=== PATIENT | male | born 1950 | race Caucasian/White ===

== ENCOUNTER 2016-08-25 21:25 | Emergency (ER) | payer MEDICARE ==
[2015-02-19 09:49] VITALS: BMI 26.6
[~2016-08-25 21:25] MED LIST: SOMA250 MG
== END 2016-08-25 23:18 | disposition home or self-care (01) ==
LOC: D.ER 21:25
DX: S30.0XXA Contusion of lower back and pelvis, initial encounter (principal); X58.XXXA Exposure to other specified factors, initial encounter; Y93.89 Activity, other specified; Y92.89 Other specified places as the place of occurrence of the external cause

== ENCOUNTER 2016-11-17 16:13 | Emergency (ER) | payer MEDICARE ==
[2015-02-19 09:49] VITALS: BMI 26.6
[2016-11-17 17:06] LABS: APPEARANCE CLEAR (CLEAR); BILIRUBIN NEGATIVE (NEGATIVE); COLOR YELLOW (YELLOW); GLUCOSE NEGATIVE (NEGATIVE); KETONE NEGATIVE (NEGATIVE); LEUKOCYTE ESTERASE NEGATIVE (NEGATIVE); NITRITE NEGATIVE (NEGATIVE); PROTEIN NEGATIVE (NEGATIVE); UROBILINOGEN NORMAL (NORMAL)
[2016-11-17 18:41] LABS: BASOPHILS 0 % (0.0-2.0); EOSINOPHILS 0.2 % (0-7); HEMATOCRIT 40.4 % (42.0-54.0); HEMOGLOBIN 13.5 g/dL (13.5-17.5); LYMPHOCYTES 13.9 % (15-50); MCH 31.5 pg (26.0-34.0); MCHC 33.4 g/dL (31.0-37.0); MCV 94.2 fL (80.0-100.0); MEAN PLATELET VOLUME 11.8 fL (7.4-10.4); MONOCYTES 6.8 % (2-11); NEUTROPHILS 79.1 % (40-80); PLATELET COUNT 69 10x3/uL (130-400); RBC 4.29 10x6/uL (4.20-6.10); RDW 13.9 % (11.5-14.5); WBC 4.4 10x3/uL (4.8-10.8)
[2016-11-17 19:06] LABS: PLATELET ESTIMATE DECREASED
== END 2016-11-17 19:55 | disposition home or self-care (01) ==
LOC: D.ER 16:13
PROVIDERS: Emergency Medicine; Physician Assistant Medical
DX: E86.0 Dehydration (principal); R19.7 Diarrhea, unspecified

== ENCOUNTER 2017-09-08 03:53 | Emergency (ER) | payer MEDICARE ==
[2015-02-19 09:49] VITALS: BMI 26.6
[2017-09-08 04:59] LABS: BASOPHILS 0.1 % (0-2); EOSINOPHILS 0.6 % (0-7); HEMATOCRIT 42.9 % (42.0-54.0); HEMOGLOBIN 14.5 g/dL (13.5-17.5); IMMATURE GRANULOCYTES 0.3 % (0-5); LYMPHOCYTES 19.1 % (15-50); MCH 31.6 pg (26.0-34.0); MCHC 33.8 g/dL (31.0-37.0); MCV 93.5 fL (80.0-100.0); MEAN PLATELET VOLUME 11.7 fL (7.4-10.4); MONOCYTES 10.1 % (2-11); NEUTROPHILS 69.8 % (40-80); RBC 4.59 10x6/uL (4.20-6.10); RDW 13.7 % (11.5-14.5); WBC 6.9 10x3/uL (4.8-10.8)
[2017-09-08 05:03] LABS: PLATELET COUNT 101 10x3/uL (130-400)
[2017-09-08 05:28] LABS: ANION GAP 13.4 mmol/L (8-16); BILIRUBIN - TOTAL 0.9 mg/dL (0.2-1.3); CARBON DIOXIDE 25.1 mmol/L (21.0-32.0); CREATININE - SERUM 1.1 mg/dL (0.6-1.3); POTASSIUM - SERUM 3.5 mmol/L (3.5-5.1); PROTEIN - SERUM 6.1 g/dL (6.4-8.2)
[2017-09-08 05:49] LABS: APPEARANCE HAZY (CLEAR); BILIRUBIN NEGATIVE (NEGATIVE); COLOR DK YELLOW (YELLOW); GLUCOSE NEGATIVE (NEGATIVE); KETONE NEGATIVE (NEGATIVE); NITRITE NEGATIVE (NEGATIVE); PROTEIN NEGATIVE (NEGATIVE); SPECIFIC GRAVITY 1.025 (1.005-1.020); UROBILINOGEN NORMAL (NORMAL)
[2017-09-08 05:50] LABS: BACTERIA FEW /hpf (NONE SEEN); EPITHELIAL CELLS 0-5 /hpf (0-5); MUCUS >1+ /lpf (NONE SEEN); RED CELLS - URINE 0-5 /hpf (0-5); WHITE CELLS - URINE 0-5 /hpf (0-5)
== END 2017-09-08 08:50 | disposition home or self-care (01) ==
LOC: D.ER 03:53
PROVIDERS: Emergency Medicine
DX: R00.0 Tachycardia, unspecified (principal)

== ENCOUNTER 2017-09-10 12:17 | Inpatient (IN) | payer MEDICARE ==
[~2017-09-10] VITALS: Ht 170.2 cm; Wt 77.1 kg
[2017-09-10 13:01] LABS: BASOPHILS 0.1 % (0-2); EOSINOPHILS 0.1 % (0-7); HEMATOCRIT 46.4 % (42.0-54.0); HEMOGLOBIN 16.2 g/dL (13.5-17.5); IMMATURE GRANULOCYTES 0.3 % (0-5); LYMPHOCYTES 16.1 % (15-50); MCHC 34.9 g/dL (31.0-37.0); MCV 91.5 fL (80.0-100.0); MEAN PLATELET VOLUME 11.2 fL (7.4-10.4); MONOCYTES 8.8 % (2-11); NEUTROPHILS 74.6 % (40-80); PLATELET COUNT 142 10x3/uL (130-400); RBC 5.07 10x6/uL (4.20-6.10); RDW 13.8 % (11.5-14.5); WBC 13.1 10x3/uL (4.8-10.8)
[2017-09-10 13:17] LABS: ANION GAP 17.2 mmol/L (8-16); BILIRUBIN - TOTAL 0.84 mg/dL (0.2-1.3); CARBON DIOXIDE 21.4 mmol/L (21.0-32.0); CREATININE - SERUM 1.1 mg/dL (0.6-1.3); POTASSIUM - SERUM 3.6 mmol/L (3.5-5.1)
[2017-09-10 15:43] LABS: APPEARANCE CLEAR (CLEAR); BILIRUBIN NEGATIVE (NEGATIVE); COLOR AMBER (YELLOW); GLUCOSE NEGATIVE (NEGATIVE); KETONE LARGE mg/dL (NEGATIVE); NITRITE NEGATIVE (NEGATIVE); PROTEIN TRACE mg/dL (NEGATIVE); SPECIFIC GRAVITY 1.025 (1.005-1.020); UROBILINOGEN NORMAL (NORMAL)
[2017-09-10 15:44] LABS: EPITHELIAL CELLS OCC /hpf (0-5); MUCUS <1+ /lpf (NONE SEEN); RED CELLS - URINE 0-5 /hpf (0-5); WHITE CELLS - URINE 0-5 /hpf (0-5)
[2017-09-10 20:00] VITALS: BP 103/64
[2017-09-10] MEDS ORDERED: ZOVIRAX800 MG (20:08)
[2017-09-10] MEDS ORDERED: SOMA250 MG (20:18)
[2017-09-10] MEDS ORDERED: ROBAXIN500 MG PO (20:27)
[2017-09-10] MEDS ORDERED: NEURONTIN 300300 MG PO (20:28)
[2017-09-11] VITALS: BP 99/62
[2017-09-11 04:00] VITALS: BP 96/63
[2017-09-11 05:43] LABS: BASOPHILS 0.1 % (0-2); EOSINOPHILS 0.2 % (0-7); HEMATOCRIT 41.3 % (42.0-54.0); HEMOGLOBIN 14.2 g/dL (13.5-17.5); IMMATURE GRANULOCYTES 0.2 % (0-5); LYMPHOCYTES 17.2 % (15-50); MCH 31.8 pg (26.0-34.0); MCHC 34.4 g/dL (31.0-37.0); MCV 92.4 fL (80.0-100.0); MONOCYTES 10.3 % (2-11); RBC 4.47 10x6/uL (4.20-6.10); RDW 13.9 % (11.5-14.5)
[2017-09-11 05:49] LABS: PLATELET COUNT 111 10x3/uL (130-400); WBC 9.8 10x3/uL (4.8-10.8)
[2017-09-11 06:06] LABS: ALKALINE PHOSPHATASE 36 U/L (46-116); ALT (SGPT) 17 U/L (10-68); CALC OSMOLALITY 278 mosm/kg (275-300); CALCIUM 7.4 mg/dL (8.5-10.1); CARBON DIOXIDE 23.1 mmol/L (21.0-32.0); CHLORIDE - SERUM 107 mmol/L (98-107); CREATININE - SERUM 0.9 mg/dL (0.6-1.3); GLUCOSE 112 mg/dL (74-106); POTASSIUM - SERUM 3.7 mmol/L (3.5-5.1); PROTEIN - SERUM 4.7 g/dL (6.4-8.2); SODIUM 140 mmol/L (136-145); UREA NITROGEN 11 mg/dL (7-18); eGFR NON AFRICAN AMERICAN 89 mL/min (90-120)
[2017-09-11 06:07] LABS: ALBUMIN 2.2 g/dL (3.4-5.0)
[2017-09-11 06:14] VITALS: BP 96/63; BMI 26.7
[2017-09-11 08:06] VITALS: BP 109/68
[2017-09-11 09:40] VITALS: BMI 26.6
[2017-09-11 11:08] VITALS: Ht 170.2 cm; Wt 77.1 kg
[2017-09-11 11:41] LABS: HEMOGLOBIN A1C 5.7 % (4.8-6.0)
[2017-09-11 12:02] VITALS: BP 112/64
[2017-09-11 15:36] LABS: INR 1.3 (0.85-1.17); PROTIME 15.7 SECONDS (11.6-15.0)
[2017-09-11 20:00] VITALS: BP 126/73
[2017-09-12] VITALS (7 sets, daily range): BP systolic 96–131; BP diastolic 56–78
[2017-09-12 05:03] LABS: BASOPHILS 0.1 % (0-2); EOSINOPHILS 0.4 % (0-7); HEMATOCRIT 38.8 % (42.0-54.0); HEMOGLOBIN 13.1 g/dL (13.5-17.5); IMMATURE GRANULOCYTES 0.1 % (0-5); LYMPHOCYTES 22.6 % (15-50); MCH 31.3 pg (26.0-34.0); MCHC 33.8 g/dL (31.0-37.0); MCV 92.6 fL (80.0-100.0); MEAN PLATELET VOLUME 10.9 fL (7.4-10.4); MONOCYTES 9.6 % (2-11); NEUTROPHILS 67.2 % (40-80); PLATELET COUNT 108 10x3/uL (130-400); RBC 4.19 10x6/uL (4.20-6.10); RDW 14.2 % (11.5-14.5)
[2017-09-12 05:14] LABS: CALC OSMOLALITY 278 mosm/kg (275-300); CALCIUM 7.1 mg/dL (8.5-10.1); CARBON DIOXIDE 24.4 mmol/L (21.0-32.0); CHLORIDE - SERUM 110 mmol/L (98-107); CREATININE - SERUM 0.9 mg/dL (0.6-1.3); GLUCOSE 104 mg/dL (74-106); POTASSIUM - SERUM 3.3 mmol/L (3.5-5.1); SODIUM 141 mmol/L (136-145); eGFR NON AFRICAN AMERICAN 89 mL/min (90-120)
[2017-09-12 05:27] LABS: UREA NITROGEN 8 mg/dL (7-18)
[2017-09-13 04:00] VITALS: BP 108/60
[2017-09-13 04:15] LABS: BASOPHILS 0.2 % (0-2); EOSINOPHILS 0.8 % (0-7); HEMATOCRIT 38.6 % (42.0-54.0); HEMOGLOBIN 13.2 g/dL (13.5-17.5); IMMATURE GRANULOCYTES 0.5 % (0-5); LYMPHOCYTES 22.6 % (15-50); MCH 31.3 pg (26.0-34.0); MCHC 34.2 g/dL (31.0-37.0); MCV 91.5 fL (80.0-100.0); MEAN PLATELET VOLUME 11.2 fL (7.4-10.4); MONOCYTES 8.9 % (2-11); PLATELET COUNT 110 10x3/uL (130-400); RBC 4.22 10x6/uL (4.20-6.10); RDW 14.2 % (11.5-14.5); WBC 6.3 10x3/uL (4.8-10.8)
[2017-09-13 04:32] LABS: CALC OSMOLALITY 282 mosm/kg (275-300); CALCIUM 7.5 mg/dL (8.5-10.1); CARBON DIOXIDE 21.4 mmol/L (21.0-32.0); CHLORIDE - SERUM 111 mmol/L (98-107); CREATININE - SERUM 0.9 mg/dL (0.6-1.3); GLUCOSE 103 mg/dL (74-106); POTASSIUM - SERUM 3.2 mmol/L (3.5-5.1); SODIUM 143 mmol/L (136-145); UREA NITROGEN 8 mg/dL (7-18); eGFR NON AFRICAN AMERICAN 89 mL/min (90-120)
[2017-09-13 09:14] VITALS: BP 136/82
[2017-09-13] MEDS ORDERED: FLAGYL500 MG PO (12:08)
== END 2017-09-13 14:55 | disposition home or self-care (01) | DRG 372 ==
LOC: D.ER 12:17 → D.MS 17:07
PROVIDERS: Family Medicine; Internal Medicine Nephrology
DX: A04.72 Enterocolitis due to Clostridium difficile, not specified as recurrent (principal); B19.9 Unspecified viral hepatitis without hepatic coma; K74.60 Unspecified cirrhosis of liver

== ENCOUNTER → 2017-10-05 07:49 | Outpatient (CLI) | payer MEDICARE ==
[2017-09-11 11:08] VITALS: BMI 26.6
[~2017-10-05 07:49] MED LIST changes: +FLAGYL500 MG PO; +NEURONTIN 300300 MG PO; +ROBAXIN500 MG PO; +ZOVIRAX800 MG
== END | disposition home or self-care (01) ==
LOC: D.US 07:49
DX: D69.6 Thrombocytopenia, unspecified (principal)

== ENCOUNTER 2018-12-10 22:48 | Emergency (ER) | payer MEDICARE ==
[~2018-12-10] VITALS: Ht 170.2 cm; Wt 77.3 kg
[~2018-12-10 22:48] MED LIST changes: +FLORAJEN3 CAPS460 MG PO; +K-DUR20 MEQ PO; +LASIX20 MG PO; +LEVAQUIN750 MG PO; +MUCINEX600 MG PO; +TESSALON PERLE100 MG PO; +VENTOLIN HFA18 GM INH
[2018-12-10 22:54] VITALS: Ht 170.2 cm; Wt 77.3 kg
[2018-12-10] MEDS ORDERED: NAPROSYN500 MG PO (23:27)
[2018-12-10 23:41] VITALS: BP 122/77
== END 2018-12-10 23:42 | disposition home or self-care (01) ==
LOC: D.ER 22:48
DX: S46.912A Strain of unspecified muscle, fascia and tendon at shoulder and upper arm level, left arm, initial encounter (principal); X58.XXXA Exposure to other specified factors, initial encounter; Y93.89 Activity, other specified; Y92.89 Other specified places as the place of occurrence of the external cause